=== PATIENT | female | born 1990 | race Caucasian/White ===

== ENCOUNTER 2022-02-26 13:46 | Emergency (ER) | payer OTHER ==
[2022-02-26 14:37] LABS: Absolute Lymphocytes (CBC) 1.1 K/uL (0.7-4.9); Hematocrit 39.8 % (36.0-45.0); MCV 87.9 fL (80-100); MPV 9.3 fL (7.6-11.3); RBC Red Blood Cell Count 4.53 M/uL (3.86-4.86)
[2022-02-26 14:41] LABS: Protime INR 0.91
[2022-02-26 14:53] LABS: ALT/SGPT 210 U/L (12-78); AST/SGOT 90 U/L (15-37); Albumin 3.2 g/dL (3.4-5.0); Alkaline Phosphatase 156 U/L (45-117); BUN Blood Urea Nitrogen 8 mg/dL (7-18); Bicarbonate 23 mmol/L (21-32); Bilirubin Total 0.2 mg/dL (0.2-1.0); Glomerular Filtration Rate 71 ml/min (=/>90); Glucose Level 341 mg/dL (74-106); Potassium 3.6 mmol/L (3.5-5.1); Protein, Total 6.6 g/dL (6.4-8.2); Sodium Level 137 mmol/L (136-145)
[2022-02-26 14:54] LABS: Bilirubin Direct < 0.1 mg/dL (0-0.2)
[2022-02-26 15:27] LABS: Urine Blood Negative (Negative); Urine Glucose 3+ (Negative); Urine Protein 2+ (Negative); Urine Specific Gravity 1.025 (1.005-1.030)
[2022-02-26 15:45] LABS: Barbiturates NEGATIVE (NEGATIVE); Benzodiazepines NEGATIVE (NEGATIVE); Cocaine NEGATIVE (NEGATIVE); METHAMPHETAM POSITIVE (NEGATIVE); Methadone NEGATIVE (NEGATIVE); Opiates POSITIVE (NEGATIVE); Phencyclidine NEGATIVE (NEGATIVE); THC Cannibis NEGATIVE (NEGATIVE)
[2022-02-26 16:31] LABS: Urine Specific Gravity/Preg 1.025 (1.005-1.030)
[2022-02-26] MEDS ORDERED: NA CHLORIDE 0.9% 1,000 ML ONE (16:51)
--- NOTE | 2022-02-26 18:08 | ER ---
Nurse's Notes [facility] Name: Elisabeth Mckeon Age: 31 yrs Sex: Female : 1990 Arrival Date: 02/26/2022 Time: 13:52 Bed 3 Private MD: Diagnosis: Overdose - heroin, recreational;Hyperglycemia, unspecified Presentation: 02/26 13:50 Chief complaint: EMS states: Possible OD of heroin, pt found with RR of two, 2 mg jl7 Narcan IV given with improvement of RR. Pt drowsy with pulse ox of 74 on arrival to ED, reports OD on heroin that she snorted. 13:50 Coronavirus screen: At this time, the client does not indicate any symptoms associated jl7 with coronavirus-19. Ebola Screen: No symptoms or risks identified at this time. Initial Sepsis Screen: Does the patient meet any 2 criteria? No. Patient's initial sepsis screen is negative. Does the patient have a suspected source of infection? No. Patient's initial sepsis screen is negative. Risk Assessment: Do you want to hurt yourself or someone else? Patient reports no desire to harm self or others. Onset of symptoms was February 26, 2022. Care prior to arrival: Medication(s) given: 2mg Narcan IV initiated. 18 GA, in the left EJ. 13:50 Method Of Arrival: EMS: [facility] 13:50 Acuity: SOMMER 2 jl7 Triage Assessment: 14:08 General: Appears in no apparent distress. uncomfortable, unkempt, Behavior is jl7 cooperative, drowsy. Pain: Denies pain. Neuro: Riggins Agitation-Sedation Scale (RASS): -1 Drowsy Level of Consciousness is obeys commands, drowsy. Oriented to person, place, time, situation. Cardiovascular: Patient's skin is warm and dry. Rhythm is sinus tachycardia. Respiratory: Airway is patent Respiratory effort is even, unlabored, shallow, Respiratory pattern is regular, symmetrical. Derm: Skin is dry, Skin is pale, Skin temperature is cool. 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 - Social history:: Smoking status: unknown Patient uses street drugs, heroin. Screenin:00 Abuse screen: Denies threats or abuse. Denies injuries from another. Nutritional jl7 screening: No deficits noted. Tuberculosis screening: No symptoms or risk factors identified. Fall Risk No fall in past 12 months (0 pts). Secondary diagnosis (15 points) impaired mobility, IV access (20 points). Ambulatory Aid- None/Bed Rest/Nurse Assist (0 pts). Gait- Impaired (20 pts.). Mental Status- Overestimates/Forgets Limitations (15 pts.). Total Garcia Fall Scale indicates High Risk Score (45 or more points). Fall prevention measures have been instituted. Side Rails Up X 2 Placed Close to Nursing Station Frequent Obs/Assessments Occuring As available patient and family educated on Fall Prevention Program and Strategies. Assessment: 14:00 General: See triage assessment. jl7 15:15 Reassessment: Patient appears in no apparent distress at this time. No changes from jl7 previously documented assessment. Patient and/or family updated on plan of care and expected duration. Pain level reassessed. Patient is alert, oriented x 3, equal unlabored respirations, skin warm/dry/pink. Pt able to use bedside commode to provide urine sample, denies urinary symptoms. 16:00 Reassessment: Patient appears in no apparent distress at this time. No changes from jl7 previously documented assessment. Patient and/or family updated on plan of care and expected duration. Pain level reassessed. Patient is alert, oriented x 3, equal unlabored respirations, skin warm/dry/pink. 17:00 Reassessment: Patient appears in no apparent distress at this time. No changes from jl7 previously documented assessment. Patient and/or family updated on plan of care and expected duration. Pain level reassessed. Patient is alert, oriented x 3, equal unlabored respirations, skin warm/dry/pink. 18:00 Reassessment: Patient appears in no apparent distress at this time. No changes from jl7 previously documented assessment. Patient and/or family updated on plan of care and expected duration. Pain level reassessed. Patient is alert, oriented x 3, equal unlabored respirations, skin warm/dry/pink. Vital Signs: 13:50 BP 115 / 81; Pulse 110; Resp 13 S; Temp 96.9; Pulse Ox 74% on R/A; Weight 63.5 kg; Pain jl7 0/10; 14:30 BP 102 / 70; Pulse 98; Resp 13; Pulse Ox 100% on Non-rebreather mask; jl7 15:00 BP 105 / 75; Pulse 93; Resp 15; Pulse Ox 100% on Non-rebreather mask; jl7 15:37 BP 103 / 72; Pulse 97; Resp 15; Pulse Ox 94% on R/A; jl7 16:00 BP 108 / 70; Pulse 90; Resp 15; Pulse Ox 96% on R/A; jl7 16:30 BP 104 / 74; Pulse 87; Resp 15; Pulse Ox 95% on R/A; jl7 17:00 BP 118 / 82; Pulse 86; Resp 14; Pulse Ox 98% on R/A; jl7 17:30 BP 105 / 68; Pulse 70; Resp 14; Pulse Ox 99% on R/A; jl7 18:04 BP 124 / 99; Pulse 79; Resp 15 S; Pulse Ox 98% on R/A; jl7 ED Course: 13:52 Patient arrived in ED. iw 13:52 Donato Gorman MD is Attending Physician. rosi 13:52 Sydni Rico [facility]-C [facility]. kb 14:00 Patient has correct armband on for positive identification. Placed in gown. Bed in low jl7 position. Call light in reach. Side rails up X2. Client placed on continuous cardiac and pulse oximetry monitoring. NIBP monitoring applied. 14:04 Patsy Birmingham RN is Primary Nurse. jl7 14:08 Triage completed. jl7 14:08 Arm band placed on right wrist. jl7 14:10 Initial lab(s) drawn, by ED staff, sent to lab. EKG done, by ED staff, reviewed by elizabet MARRERO. Maintain EMS IV. Dressing intact. Good blood return noted. Site clean \T\ dry. Gauge \T\ site: 18 left EJ. 15:39 Urine collected: clean catch specimen, cloudy. jl7 18:00 No provider procedures requiring assistance completed. jl7 18:22 IV discontinued, intact, bleeding controlled, No redness/swelling at site. Pressure jl7 dressing applied. Administered Medications: 16:50 Drug: NS 0.9% 1000 ml Route: IV; Rate: 1000 ml; Site: left jugular; jl7 Medication: 15:37 VIS not applicable for this client. jl7 Outcome: 18:07 Discharge ordered by MD. arevalo 18:22 Discharged to home ambulatory, with friend. jl7 18:22 Condition: stable 18:22 Discharge instructions given to patient, Instructed on discharge instructions, follow up and referral plans. Demonstrated understanding of instructions, follow-up care. 18:22 Patient left the ED. jl7 Signatures: Sydni Rico, OPERATING ROOM COORDINATOR-C OPERATING ROOM COORDINATOR-Donato Campbell MD MD cha Williams, Irene, RN RN Patsy Crowley RN RN jl7
--- NOTE | 2022-02-26 18:08 | EDPHYS ---
Physician Documentation [facility] Name: Elisabeth Mckeon Age: 31 yrs Sex: Female : 1990 Arrival Date: 02/26/2022 Time: 13:52 Bed 3 Private MD: ED Physician Donato Gorman HPI: 02/26 22:31 This 31 yrs old Female presents to ER via EMS with complaints of Overdose. kb 22:31 The patient presents to the emergency department after a known overdose, a result of recreational substance abuse. Context: Method: the patient has a confirmed or suspected inhalation, heroin. Associated signs and symptoms: Pertinent positives: decreased level of consciousness. Severity of symptoms: At their worst the symptoms were moderate in the emergency department the symptoms have improved. The patient has not experienced similar symptoms in the past. The patient has not recently seen a physician. Pt reports she snorted heroin and accidentally overdosed. States she was not trying to harm herself. Denies suicidal ideations. EMS reports pt was unresponsive when they arrived on scene, but woke up once narcan 2mg was administered. . 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 - Social history:: Smoking status: unknown Patient uses street drugs, heroin. ROS: 22:31 Constitutional: Negative for fever, chills, and weight loss. kb 22:31 Neuro: Positive for altered mental status. 22:31 All other systems are negative. Exam: 16:39 ECG was reviewed by the Attending Physician. kb 22:31 Constitutional: This is a well developed, well nourished patient who is awake, alert, kb and in no acute distress. Head/Face: Normocephalic, atraumatic. Eyes: Pupils equal round and reactive to light, extra-ocular motions intact. Lids and lashes normal. Conjunctiva and sclera are non-icteric and not injected. Cornea within normal limits. Periorbital areas with no swelling, redness, or edema. ENT: Moist Mucous membranes Cardiovascular: Regular rate and rhythm with a normal S1 and S2. No gallops, murmurs, or rubs. No pulse deficits. Respiratory: Respirations even and unlabored. No increased work of breathing. Talking in full sentences Skin: Warm, dry with normal turgor. Normal color. MS/ Extremity: Pulses equal, no cyanosis. Neurovascular intact. Full, normal range of motion. Neuro: Awake and alert, GCS 15, oriented to person, place, time, and situation. Moves all extremities. Normal gait. Psych: Awake, alert, with orientation to person, place and time. Behavior, mood, and affect are within normal limits. Vital Signs: 13:50 BP 115 / 81; Pulse 110; Resp 13 S; Temp 96.9; Pulse Ox 74% on R/A; Weight 63.5 kg; Pain jl7 0/10; 14:30 BP 102 / 70; Pulse 98; Resp 13; Pulse Ox 100% on Non-rebreather mask; jl7 15:00 BP 105 / 75; Pulse 93; Resp 15; Pulse Ox 100% on Non-rebreather mask; jl7 15:37 BP 103 / 72; Pulse 97; Resp 15; Pulse Ox 94% on R/A; jl7 16:00 BP 108 / 70; Pulse 90; Resp 15; Pulse Ox 96% on R/A; jl7 16:30 BP 104 / 74; Pulse 87; Resp 15; Pulse Ox 95% on R/A; jl7 17:00 BP 118 / 82; Pulse 86; Resp 14; Pulse Ox 98% on R/A; jl7 17:30 BP 105 / 68; Pulse 70; Resp 14; Pulse Ox 99% on R/A; jl7 18:04 BP 124 / 99; Pulse 79; Resp 15 S; Pulse Ox 98% on R/A; jl7 MDM: 13:52 Patient medically screened. rosi 18:06 Data reviewed: vital signs, nurses notes. Data interpreted: Pulse oximetry: on room air kb is 100 %. Interpretation: normal. Counseling: I had a detailed discussion with the patient and/or guardian regarding: the historical points, exam findings, and any diagnostic results supporting the discharge/admit diagnosis, lab results, the need for outpatient follow up, a family practitioner, to return to the emergency department if symptoms worsen or persist or if there are any questions or concerns that arise at home. ED course: pt awake, alert and oriented. Will discharge home. . 22:34 Data reviewed: I have discussed the patient's presentation/case with the attending Emergency Department Physician;. 02/26 13:53 Order name: Acetaminophen; Complete Time: 15:00 kb 02/26 13:53 Order name: Basic Metabolic Panel; Complete Time: 15:00 kb 02/26 13:53 Order name: CBC with Diff; Complete Time: 15:00 kb 02/26 13:53 Order name: ETOH Level; Complete Time: 15:00 kb 02/26 13:53 Order name: Hepatic Function; Complete Time: 15:00 kb 02/26 13:53 Order name: PT-INR; Complete Time: 15:00 kb 02/26 13:53 Order name: Ptt, Activated; Complete Time: 15:00 kb 02/26 13:53 Order name: Salicylate; Complete Time: 15:00 kb 02/26 13:53 Order name: Urine Drug Screen; Complete Time: 15:57 kb 02/26 13:53 Order name: EKG; Complete Time: 13:54 kb 02/26 14:09 Order name: Glucose, Ancillary Testing; Complete Time: 14:12 EDMS 02/26 15:27 Order name: Urine Dipstick-Ancillary; Complete Time: 15:34 EDMS 02/26 15:33 Order name: Urine --Ancillary (enter results); Complete Time: 16:39 em1 02/26 13:53 Order name: EKG - Nurse/Tech; Complete Time: 13:53 kb 02/26 13:53 Order name: IV Saline Lock; Complete Time: 13:53 kb 02/26 13:53 Order name: Labs collected and sent; Complete Time: 13:53 kb 02/26 13:53 Order name: Suicide Screening ([place]); Complete Time: 15:36 kb 02/26 13:53 Order name: Urine Dipstick-Ancillary (obtain specimen); Complete Time: 15:36 kb 02/26 13:53 Order name: Urine Test (obtain specimen); Complete Time: 15:36 kb EC:39 Rate is 106 beats/min. Rhythm is regular. QRS [place] is Normal. VA interval is normal at kb 148 msec. QRS interval is normal at 88 msec. QT interval is normal at 488 msec. Administered Medications: 16:50 Drug: NS 0.9% 1000 ml Route: IV; Rate: 1000 ml; Site: left jugular; jl7 Disposition Summary: 02/26/22 18:07 Discharge Ordered Location: Home kb Condition: Stable kb Diagnosis - Overdose - heroin, recreational kb - Hyperglycemia, unspecified kb Followup: kb - With: Emergency Department - When: As needed - Reason: Worsening of condition Followup: kb - With: Private Physician - When: 2 - 3 days - Reason: Recheck today's complaints, Continuance of care, Re-evaluation by your physician Discharge Instructions: - Discharge Summary Sheet kb - Opioid Overdose kb - Hyperglycemia, [id number] kb Forms: - Medication Reconciliation Form kb - Thank You Letter kb - Antibiotic Education kb - Prescription Opioid Use kb Signatures: Dispatcher [employer] EDMS Sydni Rico, ARMATURE WINDER REPAIR-C ARMATURE WINDER REPAIR-Donato Campbell MD MD cha Leal, Jahala RN RN jl7
[2022-02-26 19:45] VITALS: TEMP 96.9
[2022-02-26 19:49] VITALS: BP 124/99; O2SAT 98
--- NOTE | 2022-02-28 13:48 | EKG ---
Test Date: 2022-02-26 Test Time: 14:00:35 Manager Of Corporate: RENE MEASUREMENT RESULTS: Intervals: Rate: 106 ND: 148 QRSD: 88 QT: 368 QTc: 488 [place]: P: 37 ND: 148 QRS: 76 T: 77 INTERPRETIVE STATEMENTS: Sinus tachycardia Otherwise normal ECG No previous ECG available for comparison Electronically Signed On 02-28-22 13:44:44 CDT by Stephen Wharton
== END 2022-02-26 18:22 | disposition home or self-care (01) ==
LOC: ER 13:46
DX: T40.1X1A Poisoning by heroin, accidental (unintentional), initial encounter (principal); R73.9 Hyperglycemia, unspecified
CPT/HCPCS: 93005; 85025; 80048; 36415; 80320; 80329 ×2; 81025; 85610; 82947; 80076; 85730; 81003; 80307; 99284; J7030